=== PATIENT | female | born 1940 | race Caucasian/White ===

== ENCOUNTER 2021-01-13 08:30 | Observation (INO) | payer MEDICARE, OTHER, SELFPAY ==
[2021-01-13] VITALS (7 sets, daily range): BP systolic 136–167; BP diastolic 66–82; PULSE 68–90; RESP 16–18; TEMP 36.5–37; O2SAT 91–97; BMI 25.6
--- NOTE | 2021-01-13 10:02 | USCV_ITS ---
Arlene Diaz Age: 80 Gender: F : 1940 Exam Date: 01/13/2021 14:38 Ordering Phys: Abeba Platt MD Technologist: Haritha Marie [place]am Location[place] [facility] [place] Indication: Chest pain BP: 155 / 69 HR: 79 Rhythm: Sinus Technical Quality: Adequate MEASUREMENTS (Male / Female) Normal Values 2D ECHO LV Diastolic Diameter PLAX 3.9 cm 4.2 - 5.9 / 3.9 - 5.3 cm LV Systolic Diameter PLAX 2.9 cm LV Chamber Size 4.2 cm IVS Diastolic Thickness 1.5 cm 0.6 - 1.0 / 0.6 - 0.9 cm IVS Systolic Thickness 1.6 cm LVPW Diastolic Thickness 1.0 cm 0.6 - 1.0 / 0.6 - 0.9 cm LVPW Systolic Thickness 1.4 cm RV Chamber Size 2.6 cm LVOT Diameter 2.0 cm LV Ejection Fraction 2D Teich 53.5 % LV Ejection Fraction MOD 2C 67.5 % LV Ejection Fraction 2C AL 69.9 % LA Diameter 2.8 cm LA Width 2.9 cm LA Height 4.2 cm RA Width 3.4 cm RA Height 4.2 cm Aorta at Sinotubular Diameter 2.7 cm M-MODE LV Diastolic Diameter MM 5.0 cm 4.2 - 5.9 / 3.9 - 5.3 cm LV Systolic Diameter MM 3.4 cm LV Ejection Fraction MM Teich 59.0 % IVS Diastolic Thickness MM 0.6 cm 0.6 - 1.0 / 0.6 - 0.9 cm IVS Systolic Thickness MM 0.9 cm LVPW Diastolic Thickness MM 0.9 cm 0.6 - 1.0 / 0.6 - 0.9 cm LVPW Systolic Thickness MM 1.3 cm RV Diastolic Diameter MM 1.3 cm Aortic Annulus Diameter 3.0 cm LA Ao Ratio MM 1.0 MV E Point Septal Separation 0.8 cm DOPPLER AV Peak Velocity 119.0 cm/s LVOT Peak Velocity 83.0 cm/s AV Area Cont Eq vti 2.9 cm squared AV Area Cont Eq pk 2.3 cm squared MV Area PHT 3.0 cm squared Mitral E to A Ratio 0.6 MV E' Velocity 34.5 cm/s Mitral E to MV E' Ratio 11.4 Mitral E to LV E' Lateral Ratio 16.7 Mitral E to LV E' Septal Ratio 8.7 TR Peak Velocity 227.7 cm/s TR Peak Gradient 20.7 mmHg TR Mean Velocity 180.3 cm/s TR Mean Gradient 13.3 mmHg TR Velocity Time Integral 61.6 cm TV Peak E Velocity 53.0 cm/s Right Atrial Pressure 3.0 mmHg Pulmonary Artery Systolic Pressu 23.7 mmHg PV Peak Velocity 72.0 cm/s RV Acceleration Time 0.1 s RV Ejection Time 0.3 s RV AcT/ET 0.2 FINDINGS Left Ventricle Normal left ventricular size, systolic function and wall thickness, with no regional wall motion abnormalities. Left ventricular ejection fraction is estimated at 60-65 %. Grade I diastolic dysfunction (abnormal relaxation filling pattern), normal to mildly elevated filling pressures. Right Ventricle Normal right ventricular size and systolic function. Right ventricular systolic pressure 23.7 mmHg. Right Atrium Normal right atrial size. Right atrial pressure estimated at 3 mm Hg. Left Atrium Normal left atrial size. Mitral Valve Structurally normal mitral valve. No mitral valve stenosis. Trace mitral valve regurgitation. Aortic Valve Structurally normal trileaflet aortic valve. No aortic valve stenosis. Trace aortic valve regurgitation. Tricuspid Valve Structurally normal tricuspid valve. No tricuspid valve stenosis. Trace to mild tricuspid valve regurgitation. Pulmonic Valve Structurally normal pulmonic valve. No pulmonary valve stenosis. Trace pulmonary valve regurgitation. Pericardium Trivial pericardial effusion. Aorta Normal size aortic root and proximal ascending aorta. Normal sized inferior vena cava. CONCLUSIONS 1. Normal left ventricular size, systolic function and wall thickness, with no regional wall motion abnormalities. Left ventricular ejection fraction is estimated at 60-65 %. Grade I diastolic dysfunction (abnormal relaxation filling pattern), normal to mildly elevated filling pressures. 2. Normal right ventricular size and systolic function. 3. Normal pulmonary artery pressure. 4. Trace to mild tricuspid valve regurgitation. 5. Trivial pericardial effusion. 6. No prior similar studies to compare. Joceline Perera MD (Electronically Signed) Final Date: 14 January 2021 10:24 S
--- NOTE | 2021-01-13 10:14 | ECG_ITS ---
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 Measurements Intervals [place] Rate: 67 P: 41 [place]: 145 QRS: 27 QRSD: 90 T: 31 QT: 375 QTc: 396 Interpretive Statements SINUS RHYTHM No previous ECG available for comparison Electronically Signed On 01-13-2021 22:52:56 CDT by Joceline Perera M.D. [id number]
[2021-01-13 11:08] LABS: Troponin(5th) Baseline 6 ng/L (0-10)
--- NOTE | 2021-01-13 12:14 | ECG_ITS ---
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 Measurements Intervals [place] Rate: 69 P: 50 [place]: 147 QRS: 33 QRSD: 104 T: 46 QT: 371 QTc: 399 Interpretive Statements SINUS RHYTHM Compared to ECG 01/13/2021 11:51:56 No significant changes Electronically Signed On 01-13-2021 23:10:14 CDT by Joceline Perera M.D. [email or web address]/[id number]
--- NOTE | 2021-01-13 12:52 | P.HP_ITS ---
Providers/Chief Complaint Admitting Physician: Carolina Schmidt MD Primary Care Provider: Irina Watson DO Chief Complaint: CP/SOB History of Present Illness Arlene Diaz is a 80 year old female with no significant past medical history who presented to ER with chest pain. Patient noted acute onset last evening during which time she noted left sided heaviness, non-radiating, denied diaphoresis, or dyspnea. Noted elevated BP however. No prior dx of hypertension, was not on any antihypertensive medications. No recent fever, chills, nausea or vomiting. EKG on arrival did not show any evidence of acute ischemia. She was given asa 325 mg x 1 and nitro-paste was applied. Pateint was chest pain free at the time of my eval. Review of Systems General: Reports: 10 or more systems reviewed and unremarkable except in HPI and below Medications/Allergies Allergies Allergy/AdvReac Type Severity Reaction Status Date / Time CONTRAST DYE Allergy ADR/ALGY-Fl Uncoded 01/13/21 10:01 ushing PFSH Acute PFSH: Surgical History (Updated 01/13/21 @ 12:56 by Abeba Platt MD) H/O wrist surgery Social History (Updated 01/13/21 @ 12:57 by Abeba Platt MD) Smoking and tobacco status: never smoked Alcohol intake: never Substance/Drug Use: never Vitals/I&O/Wt Last Vital Signs Temp 98.6 F 01/13/21 11:37 Pulse 73 01/13/21 11:37 Resp 18 01/13/21 11:37 BP 155/69 01/13/21 11:37 Pulse Ox 95 01/13/21 11:37 01/12/21 01/13/21 01/13/21 22:59 06:59 14:59 Intake Total 120 / 120 Balance 120 / 120 Weight last 48 hrs Weight 67.767 kg Physical Exam Narrative: EXAM NARRATIVE: General : Alert, awake, oriented x 3 HEENT - Grossly unremarkable CVS; RRR Chest : CTABL Abd; Soft, NT, ND Ext : No edema A&P Assessment and plan (1) Chest pain: Troponin trend Asa 325 mg PO daily Add lipitor 40 mg PO qhs check lipid panel in am A1c in am telemetry Echo Nitro prn Stress test on friday if trop remain negative. Status: Acute (2) Hypertension: Metoprolol 25 mg PO BID Status: Acute Attestations Medical Necessity Statement*: Anticipate less than 2 midnight stay in hospital for eval and treatment Time Spent in Patient Care: Greater than 35 minutes (>than 50% of time spent in counselling and/or direct pt care on unit) . Coding Level of Care Code Acute Customer Service And Sales Consultant for Ike Mota Diagnoses Chest pain R07.9 Hypertension I10
[2021-01-13 12:57] LABS: Troponin 5 2HR 7.02 ng/L (0-10); Troponin 5 2HR Delta 1.02 ABS# (0-10)
--- NOTE | 2021-01-13 16:14 | ECG_ITS ---
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 Measurements Intervals [place] Rate: 66 P: 45 [place]: 150 QRS: 15 QRSD: 88 T: 20 QT: 391 QTc: 411 Interpretive Statements SINUS RHYTHM WITH OCCASIONAL VENTRICULAR PREMATURE COMPLEXES Compared to ECG 01/13/2021 14:39:20 Ventricular premature complex(es) now present Electronically Signed On 01-13-2021 23:08:14 CDT by Joceline Perera M.D. [email or web address].[email or web address]/store/[id number]
[2021-01-13 16:54] LABS: Troponin 5 6HR 6.95 ng/L (0-10); Troponin 5 6HR Delta 0.95 ng/L (0-12)
[2021-01-13] MEDS: metoprolol tartrate 25 mg Tablet PO (20:04)
[2021-01-14] VITALS (8 sets, daily range): BP systolic 131–171; BP diastolic 71–89; PULSE 64–77; RESP 15–18; TEMP 36.4–37.3; O2SAT 93–96
--- NOTE | 2021-01-14 05:22 | PC.NURSE ---
SHIFT SUMMARY Has rested well without any c/o pain or discomfort. Started po Metoprolol last evening. Telemetry showing SR with occ PVC
[2021-01-14 05:46] LABS: Basophils # 0.1 10^3/uL (0.0-0.1); Eosinophils # 0.3 10^3/uL (0.0-0.8); Eosinophils % 4.6 %; Hematocrit 36.8 % (37.0-47.0); Lymphocytes # 2.1 10^3/uL (0.8-4.8); Lymphocytes % 33.7 %; Mean Corpuscular HGB Conc 32.6 g/dL (30.0-36.0); Mean Corpuscular Hemoglobin 28.9 pg (28.0-34.0); Mean Corpuscular Volume 88.7 fL (81-99); Mean Platelet Volume 11.6 fL (7.4-10.4); Monocytes # 0.6 10^3/uL (0.2-0.9); Monocytes % 9.1 %; Neutrophils # 3.17 10^3/uL (1.8-7.7); Neutrophils % 51.4 %; Nucleated Red Blood Cells % 0 %; Platelet Count 185 10^3/cmm (130-400); Red Blood Count 4.15 10^6/uL (4.1-5.3); Red Cell Distribution Width 14.6 % (12.1-15.1); White Blood Count 6.2 10^3/uL (4.0-10.0)
[2021-01-14 05:50] LABS: Alanine Aminotransferase 10 U/L (0-33); Albumin Level 3.5 g/dL (3.5-5.2); Alkaline Phosphatase 53 IU/L (35-105); Aspartate Amino Transferase 14 U/L (0-32); Blood Urea Nitrogen 16 mg/dL (8-23); Calcium 8.9 mg/dL (8.5-10.5); Carbon Dioxide 24 mmol/L (22-29); Chloride 104 mmol/L (98-107); Chol HDL Ratio 2.72 mg/dL (0.0-4.40); Cholesterol 163 mg/dL (0-200); Globulin 2.4 g/dL (1.3-4.6); Glucose 93 mg/dL (65-115); HDL Cholesterol 60 mg/dL (60-100); LDL Cholesterol Calculated 91 mg/dL (50-129); LDL HDL Ratio 1.52 RATIO (0.00-3.22); Magnesium 2.1 mg/dL (1.7-2.3); Osmolality Calculated 279 mOsm/kg (285-295); Sodium 134 mmol/L (136-145); Thyroid Stimulating Hormone 2.33 uIU/mL (0.27-4.20); Total Bilirubin 0.3 mg/dL (0.15-1.2); Total Protein 5.9 g/dL (6.6-8.7); Triglycerides 61 mg/dL (0-150)
[2021-01-14 05:53] LABS: Anion Gap 9.8 (5-19); Potassium 3.8 mmol/L (3.5-5.1)
[2021-01-14 06:04] LABS: Estmated Average Glucose 103; Hemoglobin A1C 5.2 % (4.0-6.0)
[2021-01-14] MEDS: metoprolol tartrate 25 mg Tablet PO ×2 (08:38→20:02)
--- NOTE | 2021-01-14 15:08 | ECG_ITS ---
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 Interpretive Statements NAME OF STUDY: LEXISCAN SESTAMIBI STRESS TEST INDICATION: Chest Pain PROCEDURE: At the baseline, the blood pressure was 170/99 mmHg with a heart rate of 82 bpm and oxygen saturation 92%. The electrocardiogram showed normal sinus rhythm, normal axis with normal ST and T's. The Lexiscan was infused over a period of 20 seconds. A total of 0.4 milligrams of Lexiscan was infused. The stress phase was continued for a total of 5 minutes. Heart rate at the end of the stress phase was 104 bpm, oxygen saturation 98% with a blood pressure of 149/87 mmHg. The EKG at the peak infusion revealed no significant ST-T wave changes. Isolated PVCs noted during Lexiscan infusion. Sestamibi was injected 20 seconds after the Lexiscan infusion. Blood pressure in recovery increased to 215/100 mmHg and at the end of the recovery phase was 150/97 mmHg, oxygen saturation 97% with a heart rate of 97 beats per minute. CONCLUSION: 1. No significant EKG changes with the LexiScan infusion. 2. No LexiScan induced chest pain or cardiac arrhythmia. 3. Baseline hypertension with increase in blood pressure during recovery. 4. Sestamibi/sestamibi perfusion scan pending; see separate report. Electronically Signed On 01-15-2021 12:29:53 CDT by Joceline Perera M.D. [email or web address]/store/[id number]
--- NOTE | 2021-01-14 15:09 | P.PN_ITS ---
Subjective Subjective: Interval history: Chest pain resolved. No new complaints. Medications: Reviewed: Yes Vitals/I&O/Wt Last Vital Signs Temp 98.0 F 01/14/21 11:12 Pulse 67 01/14/21 11:12 Resp 16 01/14/21 11:12 BP 131/71 01/14/21 11:12 Pulse Ox 94 01/14/21 11:12 01/14/21 01/14/21 01/14/21 06:59 14:59 22:59 Intake Total 240 / 480 360 / 360 Balance 240 / 480 360 / 360 Weight last 48 hrs Weight 67.767 kg Physical Exam Narrative: EXAM NARRATIVE: General : Alert, awake, oriented x 3 HEENT - Grossly unremarkable CVS; RRR Chest : CTABL Abd; Soft, NT, ND Ext : No edema Data : 01/14/21 04:28 01/14/21 04:28 A&P Assessment and plan (1) Chest pain: Troponin trend Asa 325 mg PO daily Continue Lipitor for now Telemetry Echo - pending Nitro prn NPO at midnight Nuclear stress test in am Status: Acute (2) Hypertension: Metoprolol 25 mg PO BID - Hold Status: Acute Attestations Medical Necessity Statement*: Will continue hospitalization for chest pain work up, stress test pending. Time Spent in Patient Care: Greater than 35 minutes (>than 50% of time spent in counselling and/or direct pt care on unit) . Coding Level of Care Code Acute Analytics Consultant for Ike Mota Diagnoses Chest pain R07.9 Hypertension I10
--- NOTE | 2021-01-14 20:11 | PC.NURSE ---
Patient reports no chest pain or SOB at this time.
[2021-01-15] VITALS (10 sets, daily range): BP systolic 100–187; BP diastolic 57–96; PULSE 53–98; RESP 16–22; TEMP 36.2–36.9; O2SAT 93–97
[2021-01-15] MEDS: regadenoson 0.4 Mg/5 ml Syringe IVP (07:35)
[2021-01-15] MEDS: metoprolol tartrate 25 mg Tablet PO (09:09)
--- NOTE | 2021-01-15 15:08 | NMCV_ITS ---
NM ester perf SPECT r/s* [id number] Arlene Diaz Age: 80 Gender: F : 1940 Exam Date: 01/15/2021 15:08 Ordering Phys: Abeba Platt MD Technologist: MARLENY Sierra Exam Location: [facility] Indications: CHEST PAIN, SHORTNESS OF BREATH STRESS TEST Please see separate stress test report in [facility] for full findings IMAGE PROTOCOL Rest/Stress 1 Lexiscan Day Radiopharmaceutical Dose (mCi) Administration Site Administered by Rest: Tc-99m 10.9 IV MARLENY Shultz Sestamibi Stress:Tc-99m 32.4 IV MARLENY Shultz Sestamibi Rest: 15-Jan-2021 60 Discovery 630 Stress: 15-Jan-2021 30 Discovery 630 0.4mg Lexiscan. Images obtained in supine and prone position. SPECT RESULTS Technical Quality: Excellent Raw Data Analysis: Normal Image Corrections: No attenuation or motion correction applied Summed Stress Score: 0 Summed Rest Score: 1 Summed Difference Score: 0 PERFUSION FINDINGS Small size perfusion abnormality of mild severity of apical wall on rest images with improved tracer uptake on stress images. This is suggestive of attenuation artifact FUNCTIONAL RESULTS (calculated via Gated SPECT) Stress Image LV EF (%): 73 Stress EDV (mL):86 TID: 0.96 Stress ESV (mL):23 FUNCTIONAL FINDINGS: The left ventricle is normal in size. Transient Ischemia Dilatation of 0.96. There is normal left ventricular systolic function. The left ventricular ejection fraction is normal with a value of 73%. There is normal left ventricular wall thickening with no regional wall motion abnormality. Normal end-diastolic and end-systolic volumes. IMPRESSIONS 1. Myocardial perfusion imaging is normal. 2. Overall left ventricular systolic function is normal without regional wall motion abnormalities. 3. The left ventricular ejection fraction is normal with a value of 73%. 4. Scan indicates low risk for cardiac events. Joceline Perera MD (Electronically Signed) Final Date: 15 January 2021 12:25 S
--- NOTE | 2021-01-15 18:39 | PM.DCS ---
Discharge Providers Date of Admission: 01/13/21 08:30 Date of Discharge: January 15, 2021 Attending Provider at Admission: Carolina Schmidt MD Attending Provider at Discharge: Hans Huynh DO Primary Care Provider: Irina Watson DO Diagnoses at Discharge Discharge Diagnosis (1) Chest pain: Status: Acute Permanent problem details: non cardiac chest pain (2) Hypertension: Status: Acute Reason for Visit Reason for Visit: CP/SOB Hospital Course Hospital Course Patient was admitted for chest pressure. Her risk factors were in the moderate range thus the patient was kept overnight for a stress test. This stress test was negative results. The perfusion scan was negative and her ejection fraction was normal. She has been without chest pressure or shortness of breath since admission. We discussed the top 3 causes of noncardiac chest pain: GERD, stress/anxiety, costochondritis. Patient admitted to doing too much the day she had the chest pain and felt that stress and anxiety could be the culprit. She did have hypertension and was started on metoprolol 25 mg twice daily her discharge blood pressure is 128 /75 I will continue this medication and have her review this with her PCP. Physical Exam Narrative: EXAM NARRATIVE: Patient in no acute distress at time of exam patient without any symptoms. Heart: Normal S1-S2 without murmurs clicks gallops or rubs Lungs; clear to auscultation without wheezes rales or rhonchi. Abdomen: Soft nontender nondistended normal active bowel sounds Extremities: No clubbing cyanosis or edema Discharge Data Data Completed and Pending: Completed Studies During Hospitalization Category Date Time Status Sestamibi Stress Test Request Routi ne Exams 01/14/21 15:08 Completed NM ester perf SPECT r/s* [id number] Routin e Nuc Med 01/15/21 15:08 Completed US echo complete [CV echo complete* 52006] Routine Ultrasound 01/13/21 10:02 Completed NORMAL perfusion scan and normal wall motion Vitals: Last Vital Signs Temp 98.2 F 01/15/21 18:31 Pulse 66 01/15/21 18:31 Resp 22 H 01/15/21 18:31 BP 128/75 01/15/21 18:31 Pulse Ox 93 01/15/21 18:31 Discharge Plan Discharge Patient Disposition: Home Condition: Stable Prescriptions: New metoprolol tartrate 25 mg Tablet 25 mg PO BID@0900,2100 Qty: 30 RF: 0 Continued multivitamin Tablet 1 tab PO DAILY RF: 0 calcium 1 tab PO DAILY RF: 0 Discharge Orders: Discharge Order (Routine); Ordered 01/15/21 Ordered By: Hans Huynh Referrals: Irina Watson DO [Primary Care Provider] - 01/19/21 12:40 pm (APPOINTMENT WITH FRANCESCA ARTHUR) Discharge Diet: Usual diet Discharge Activity: Resume usual activity Patient Instructions: Metoprolol (By mouth), Hypertension, Chest Pain (DC), Opioid Safety Discharge Attestations Time Spent in Discharge Care*: greater than 30 min Quality Metrics Clinical Quality Measures During this hospital stay, did patient experience: None Coding Level of Care Code Acute Chg FW DC note Diagnoses Chest pain R07.9 Hypertension I10
== END 2021-01-15 18:15 | disposition home or self-care (01) ==
PROVIDERS: Hospitalist; Admitting Provider Hospitalist; PCP Family Medicine; Visit Provider Internal Medicine
DX: R07.89 Other chest pain (principal); I10 Essential (primary) hypertension; A00.9 Cholera, unspecified
CPT/HCPCS: 36415; 78452; 80053; 80061; 83036; 83735; 84443; 84484; 85025; 93005; 93017; 93306; 96372; A9500; G0378; G0379; J2785